=== PATIENT | female | born 1955 | race Hispanic/Latino ===

== ENCOUNTER 2018-12-28 08:55 | Inpatient (IN) | payer OTHER ==
[~2018-12-28] VITALS: Ht 157.5 cm; Wt 75.6 kg
[2018-12-28] MEDS: METHYLPREDNISOLONE SOD SUCC 125MG/2ML VIAL IV SCH ×2 (08:30→19:00)
[2018-12-28] MEDS ORDERED: IPRATROPIUM/ALBUTEROL SULFATE 3 ML SOLUTION IH ONE ×2 (09:38→10:46)
[2018-12-28 09:41] LABS: EOSINOPHILS % (AUTO) 38.1 % (0.0-8.0); LYMPHOCYTES % (AUTO) 7.6 % (21.0-51.0); MEAN CORPUSCULAR HEMOGLOBIN 30.4 pg (27.0-33.0); MEAN CORPUSCULAR HGB CONC 33.9 g/dL (32.0-36.0); MEAN CORPUSCULAR VOLUME 89.7 fL (79-99); MONOCYTES % (AUTO) 4.1 % (3.0-13.0); NEUTROPHILS % (AUTO) 49.2 % (40.0-77.0); PLATELET COUNT (AUTO) 229 K/uL (130-400); RED BLOOD CELL COUNT(AUTO) 4.35 MIL/uL (4.00-5.50); RED CELL DISTRIBUTION WIDTH 14.2 % (11.0-15.5); WHITE BLOOD COUNT (AUTO) 12.8 K/uL (4.8-10.8)
[2018-12-28 09:54] LABS: ABG BASE EXCESS 2.5 mmol/L (-2.0-3.0); ABG HCO3 27.1 mmol/L (21.0-28.0); ABG OXYGEN SATURATION 91.7 % (95.0-99.0); ABG PCO2 42 mmHg (32-45)
[2018-12-28 09:57] LABS: INR 1.03 (0.85-1.15); PARTIAL THROMBOPLASTIN TIME 26.5 SEC (26.3-35.5); PROTHROMBIN TIME 10.8 SEC (9.6-11.6)
[2018-12-28 10:17] LABS: ALBUMIN 3.4 g/dL (3.5-5.0); BILIRUBIN,TOTAL 0.3 mg/dL (0.2-1.0); CREATININE 0.7 mg/dL (0.5-1.5); POTASSIUM 3.7 mmol/L (3.5-5.1)
[2018-12-28] MEDS ORDERED: METHYLPREDNISOLONE SOD SUCC 125MG/2ML VIAL ONE (10:32)
[2018-12-28] MEDS ORDERED: INSULIN HUMULIN R 100 UNIT/ML 3ML ONE ×2 (10:32→19:53)
[2018-12-28] MEDS ORDERED: CEFTRIAXONE SODIUM 1 GM IV SCH (11:00)
[2018-12-28] MEDS ORDERED: DIPHENHYDRAMINE HCL 25 MG CAPSULE PO PRN (11:00)
[2018-12-28] MEDS ORDERED: ACETAMINOPHEN-CODEINE 300/30MG TAB PO PRN (11:00)
[2018-12-28] MEDS ORDERED: HYDRALAZINE HCL 20 MG/ML VIAL IV PRN (11:00)
[2018-12-28] MEDS ORDERED: ONDANSETRON HCL 4 MG/2 ML VIAL IV PRN (11:00)
[2018-12-28] MEDS ORDERED: AZITHROMYCIN 500MG+NS 250ML 250 ML IV SCH (11:00)
[2018-12-28] MEDS ORDERED: MORPHINE SULFATE 2 MG/ML 1ML SYG IV PRN (11:00)
[2018-12-28] MEDS ORDERED: ZOLPIDEM TARTRATE 5 MG TAB PO PRN (11:00)
[2018-12-28] MEDS ORDERED: LEVOFLOXACIN 750 MG/D5W 150 ML 150 ML ONE (11:13)
[2018-12-28] MEDS: INSULIN HUMULIN R 100 UNIT/ML 3ML SQ SCH ×2 (11:30→21:00)
[2018-12-28] MEDS ORDERED: IOHEXOL 350 MG/ML 100ML INFUS..BTL IV ONE (11:39)
[2018-12-28] MEDS: IPRATROPIUM/ALBUTEROL SULFATE 3 ML SOLUTION IH SCH ×3 (12:00→23:03)
[2018-12-28 12:35] LABS: APPEARANCE,URINE Clear (CLEAR); BILIRUBIN,URINE Negative (NEGATIVE); COLOR,URINE Yellow (YELLOW); GLUCOSE, URINE (UA) Negative (NEGATIVE); KETONES,URINE Negative (NEGATIVE); LEUKOCYTE ESTERASE ,URINE Negative (NEGATIVE); NITRATE,URINE Negative (NEGATIVE); OCCULT BLOOD,URINE Small (NEGATIVE); PROTEIN,URINE Negative (NEGATIVE); UROBILINOGEN,URINE 0.2 mg/dL (0.2-1.0)
[2018-12-28 12:51] LABS: BACTERIA,URINE Rare /HPF (None Seen); RBC,URINE 0-1 /HPF (0-1); SQUAMOUS EPITHELIAL CELL,UR Rare /HPF (0-2); WBC,URINE 0-1 /HPF (0-1)
[2018-12-28] MEDS ORDERED: VANCOMYCIN PROTOCOL PER PHARMACY IV SCH (14:00)
[2018-12-28] MEDS ORDERED: VANCOMYCIN 0.75 GM in SODIUM CHLORIDE 0.9% 250 ML IV ONE (14:00)
[2018-12-28] MEDS ORDERED: ZOSYN 3.375GM+NS 50ML 50 ML IV SCH (14:00)
[2018-12-28] MEDS ORDERED: MINO50CA6 PO (14:34)
[2018-12-28] MEDS ORDERED: METF-444 PO (14:34)
[2018-12-28] MEDS ORDERED: NABU500T3 PO (14:34)
[2018-12-28] MEDS ORDERED: LISI2.5T2 PO (14:34)
[2018-12-28] MEDS ORDERED: stiolto PUFF (14:34)
[2018-12-28] MEDS ORDERED: LEVO100T12 PO (14:34)
[2018-12-28] MEDS ORDERED: TRAM50TA4 PO (14:34)
[2018-12-28] MEDS ORDERED: FOLI1TAB15 PO (14:34)
[2018-12-28] MEDS: BUDESONIDE 0.5 MG/2 ML INH IH SCH (18:39)
[2018-12-28] MEDS ORDERED: ZOSYN 3.375GM+NS 50ML 50 ML IV ONE (18:58)
[2018-12-28] MEDS ORDERED: METHYLPREDNISOLONE SOD SUCC 40MG/ML 1ML ONE (18:58)
[2018-12-28 19:28] VITALS: BP 140/63
[2018-12-28] MEDS ORDERED: SODIUM CHLORIDE 0.9% 500ML 500 ML IV ONE (22:20)
[2018-12-28] MEDS: VANCOMYCIN 1GM+NS 250ML 250 ML IV SCH (22:32)
[2018-12-28] MEDS: INSULIN GLARGINE 100 UNITS/ML 10 ML VIAL SQ SCH (22:38)
[2018-12-28] MEDS ORDERED: PNEUMOCOCCAL VACCINE POLYVALENT 0.5 ML/VIAL [PPV] IM ONE (23:30)
[2018-12-29 00:26] VITALS: BP 123/69
[2018-12-29] MEDS ORDERED: SODIUM CHLORIDE 3% FOR INHALATION 4 ML/AMP VIAL.NEB IH ONE (02:08)
[2018-12-29] MEDS: METHYLPREDNISOLONE SOD SUCC 125MG/2ML VIAL IV SCH ×3 (03:00→18:41)
[2018-12-29] MEDS ORDERED: METHYLPREDNISOLONE SOD SUCC 40MG/ML 1ML ONE (03:19)
[2018-12-29] MEDS: ZOSYN 3.375GM+NS 50ML 50 ML IV SCH ×3 (03:26→18:41)
[2018-12-29 04:30] VITALS: BP 126/65
[2018-12-29 06:15] LABS: BASOPHILS % (AUTO) 0.5 % (0.0-5.0); EOSINOPHILS % (AUTO) 0.2 % (0.0-8.0); HEMATOCRIT 36.6 % (36-48); LYMPHOCYTES % (AUTO) 5.3 % (21.0-51.0); MEAN CORPUSCULAR HEMOGLOBIN 29.8 pg (27.0-33.0); MEAN CORPUSCULAR VOLUME 90.1 fL (79-99); NUCLEATED RED BLOOD CELLS 0.1 % (0.0-0.19); PLATELET COUNT (AUTO) 243 K/uL (130-400); RED BLOOD CELL COUNT(AUTO) 4.06 MIL/uL (4.00-5.50); RED CELL DISTRIBUTION WIDTH 14.1 % (11.0-15.5); WHITE BLOOD COUNT (AUTO) 10.2 K/uL (4.8-10.8)
[2018-12-29] MEDS: IPRATROPIUM/ALBUTEROL SULFATE 3 ML SOLUTION IH SCH ×4 (06:45→23:12)
[2018-12-29] MEDS: BUDESONIDE 0.5 MG/2 ML INH IH SCH ×2 (06:45→18:22)
[2018-12-29 06:49] LABS: CREATININE 0.7 mg/dL (0.5-1.5); MAGNESIUM 1.4 mg/dL (1.80-2.40); PHOSPHORUS 3.4 mg/dL (2.5-4.9); POTASSIUM 3.8 mmol/L (3.5-5.1); THYROID STIMULATING HORMONE 1.63 uIU/mL (0.36-3.74)
[2018-12-29 06:54] LABS: B-TYPE NATRIURETIC PEPTIDE 65 pg/mL (0-100)
[2018-12-29 07:30] VITALS: BP 120/65
[2018-12-29 07:57] LABS: ABG BASE EXCESS -0.1 mmol/L (-2.0-3.0); ABG HCO3 24.6 mmol/L (21.0-28.0); ABG PCO2 40 mmHg (32-45)
[2018-12-29] MEDS: INSULIN HUMULIN R 100 UNIT/ML 3ML SQ SCH ×4 (08:22→21:20)
[2018-12-29] MEDS: VANCOMYCIN 1GM+NS 250ML 250 ML IV SCH ×2 (10:01→21:17)
[2018-12-29] MEDS: ENOXAPARIN SODIUM 40 MG/0.4 ML SYRINGE SQ SCH (10:02)
[2018-12-29] MEDS: LEVOFLOXACIN 750 MG/D5W 150 ML 150 ML IV SCH (10:02)
[2018-12-29 11:00] VITALS: BP 128/64
[2018-12-29] MEDS ORDERED: POTASSIUM CHLORIDE 20MEQ/100ML 100 ML IV PRN (11:15)
[2018-12-29] MEDS ORDERED: POTASSIUM CHLORIDE 10% ELIXIR 20 MEQ/15 ML UDCUP PO PRN (11:15)
[2018-12-29] MEDS ORDERED: LIDOCAINE HCL-MPF 1% 2ML VIAL IVP PRN (11:15)
[2018-12-29] MEDS: MAGNESIUM 2GM PREMIX 50ML 50 ML IV PRN (14:01)
[2018-12-29 15:30] VITALS: BP 130/72
[2018-12-29 19:25] VITALS: BP 123/58
[2018-12-29] MEDS: OSELTAMIVIR PHOSPHATE 75 MG CAP PO SCH (21:17)
[2018-12-29] MEDS: INSULIN GLARGINE 100 UNITS/ML 10 ML VIAL SQ SCH (21:19)
[2018-12-30 00:01] VITALS: BP 112/53
[2018-12-30] MEDS ORDERED: METHYLPREDNISOLONE SOD SUCC 40MG/ML 1ML ONE ×2 (02:11→12:33)
[2018-12-30] MEDS: METHYLPREDNISOLONE SOD SUCC 125MG/2ML VIAL IV SCH ×3 (03:00→18:37)
[2018-12-30] MEDS: ZOSYN 3.375GM+NS 50ML 50 ML IV SCH ×3 (03:01→18:37)
[2018-12-30 04:25] VITALS: BP 149/66
--- NOTE | 2018-12-30 05:48 | NUR ---
PATIENT UPDATE SLEPT BETTER LAST NIGHT, STILL HAVING BOUTS OF COUGHING, CONTINUES ON THE DUONEBS TXS PER SCHEDULE, PULMICORT Q 12. STARTED ON THE TAMIFLU LAST NIGHT. VERBALIZED WANTING FOR STAFF TO ACCESS HER RT CHEST PORTACATH IN ADM OF HER MEDS, STILL PENDING RECONCILIATION OF HOME MEDS.
[2018-12-30] MEDS: BUDESONIDE 0.5 MG/2 ML INH IH SCH ×2 (06:20→18:13)
[2018-12-30] MEDS: IPRATROPIUM/ALBUTEROL SULFATE 3 ML SOLUTION IH SCH ×4 (06:20→23:06)
[2018-12-30] MEDS: INSULIN HUMULIN R 100 UNIT/ML 3ML SQ SCH ×4 (06:27→21:23)
[2018-12-30 06:33] LABS: BASOPHILS % (AUTO) 0.2 % (0.0-5.0); HEMATOCRIT 34.4 % (36-48); LYMPHOCYTES % (AUTO) 4.1 % (21.0-51.0); MEAN CORPUSCULAR HEMOGLOBIN 30.2 pg (27.0-33.0); MEAN CORPUSCULAR HGB CONC 33.5 g/dL (32.0-36.0); MEAN CORPUSCULAR VOLUME 90.1 fL (79-99); NEUTROPHILS % (AUTO) 92.7 % (40.0-77.0); PLATELET COUNT (AUTO) 209 K/uL (130-400); RED BLOOD CELL COUNT(AUTO) 3.82 MIL/uL (4.00-5.50); RED CELL DISTRIBUTION WIDTH 14.3 % (11.0-15.5); WHITE BLOOD COUNT (AUTO) 13.7 K/uL (4.8-10.8)
[2018-12-30 06:43] LABS: INR 0.98 (0.85-1.15); PARTIAL THROMBOPLASTIN TIME 26.1 SEC (26.3-35.5); PROTHROMBIN TIME 10.3 SEC (9.6-11.6)
[2018-12-30 06:47] LABS: B-TYPE NATRIURETIC PEPTIDE 178 pg/mL (0-100)
[2018-12-30 06:58] LABS: ALBUMIN 3.4 g/dL (3.5-5.0); BILIRUBIN,TOTAL 0.2 mg/dL (0.2-1.0); CREATININE 0.7 mg/dL (0.5-1.5); PHOSPHORUS 3.7 mg/dL (2.5-4.9); POTASSIUM 3.5 mmol/L (3.5-5.1); TOTAL PROTEIN, SERUM 7.8 g/dL (6.0-8.3)
[2018-12-30 08:00] VITALS: BP 122/58
[2018-12-30] MEDS: OSELTAMIVIR PHOSPHATE 75 MG CAP PO SCH ×2 (09:00→21:06)
[2018-12-30] MEDS: LEVOFLOXACIN 750 MG/D5W 150 ML 150 ML IV SCH (09:00)
[2018-12-30] MEDS: ENOXAPARIN SODIUM 40 MG/0.4 ML SYRINGE SQ SCH (09:01)
[2018-12-30] MEDS ORDERED: COMPOUND IV REFRIGERATED 1 EACH IVSOLN MISC PRN (10:00)
[2018-12-30 12:00] VITALS: BP 128/59
[2018-12-30] MEDS: VANCOMYCIN 1.25 GM in SODIUM CHLORIDE 0.9% 250 ML IV SCH ×2 (12:17→21:09)
[2018-12-30] MEDS: GUAIFENESIN-CODEINE 5 ML SYRUP PO PRN ×2 (14:32→21:07)
[2018-12-30 16:00] VITALS: BP 121/66
--- NOTE | 2018-12-30 16:50 | NUR ---
ROUNDS VISITED WITH PATIENT. POC DISCUSSED. ALL QUESTIONS ANSWERED. NO COMPLAINTS OF PAIN VOICED AT THIS TIME. VITALS STABLE. AFEBRILE. UP WITH ASSIST. DAUGHTERS AT BEDSIDE TO ASSIST WITH ADLS. NO SIGNS OF DISTRESS NOTED. O2 ON AT 3LPM VIA NASAL CANNULA. TOLERATING DUONEBS WELL. HOB ELEVATED. CALL LIGHT WITHIN REACH. WILL CONTINUE TO BE OBSERVED. Addendum: 12/30/18 at 1652 by MARITA CARODZA RN RN Amended: Links added.
[2018-12-30 20:00] VITALS: BP 126/62
[2018-12-30] MEDS: **HM**(Nabumetone 500 MG PO SCH (21:00)
[2018-12-30] MEDS: INSULIN GLARGINE 100 UNITS/ML 10 ML VIAL SQ SCH (21:24)
[2018-12-31] VITALS: BP 117/58
[2018-12-31] MEDS ORDERED: METHYLPREDNISOLONE SOD SUCC 40MG/ML 1ML ONE (02:04)
[2018-12-31] MEDS: METHYLPREDNISOLONE SOD SUCC 125MG/2ML VIAL IV SCH ×2 (03:00→10:41)
[2018-12-31] MEDS: ZOSYN 3.375GM+NS 50ML 50 ML IV SCH ×2 (03:08→10:59)
[2018-12-31 04:00] VITALS: BP 117/62
[2018-12-31 06:22] LABS: MEAN CORPUSCULAR HEMOGLOBIN 29.5 pg (27.0-33.0); MEAN CORPUSCULAR HGB CONC 32.6 g/dL (32.0-36.0); MEAN CORPUSCULAR VOLUME 90.6 fL (79-99); PLATELET COUNT (AUTO) 226 K/uL (130-400); RED BLOOD CELL COUNT(AUTO) 3.86 MIL/uL (4.00-5.50); RED CELL DISTRIBUTION WIDTH 14.3 % (11.0-15.5); WHITE BLOOD COUNT (AUTO) 10.8 K/uL (4.8-10.8)
[2018-12-31] MEDS ORDERED: LEVOTHYROXINE 100 MCG TABLET PO SCH (06:30)
[2018-12-31] MEDS: INSULIN HUMULIN R 100 UNIT/ML 3ML SQ SCH ×3 (06:46→17:24)
[2018-12-31 06:48] LABS: CREATININE 0.7 mg/dL (0.5-1.5); MAGNESIUM 1.7 mg/dL (1.80-2.40); PHOSPHORUS 4.1 mg/dL (2.5-4.9); POTASSIUM 3.5 mmol/L (3.5-5.1); THYROID STIMULATING HORMONE 4.07 uIU/mL (0.36-3.74)
[2018-12-31] MEDS: IPRATROPIUM/ALBUTEROL SULFATE 3 ML SOLUTION IH SCH ×2 (06:57→11:14)
[2018-12-31] MEDS: BUDESONIDE 0.5 MG/2 ML INH IH SCH (07:11)
[2018-12-31 08:00] VITALS: BP 113/59
[2018-12-31] MEDS ORDERED: METFORMIN HCL 500 MG TAB.SR.24H PO SCH (08:00)
--- NOTE | 2018-12-31 08:06 | NUR ---
cm note met with patient and states resides at home with spouse and adult daughters. , independent with adls and self care ambulation, no HH, no dme. only has a nebulizer machine. dc plan isback to same home setting [place]. Addendum: 12/31/18 at 0808 by OLEKSANDR CEDILLO CM Amended: Links added.
[2018-12-31] MEDS: LEVOFLOXACIN 750 MG/D5W 150 ML 150 ML IV SCH (08:37)
[2018-12-31] MEDS: OSELTAMIVIR PHOSPHATE 75 MG CAP PO SCH (08:37)
[2018-12-31] MEDS: ENOXAPARIN SODIUM 40 MG/0.4 ML SYRINGE SQ SCH (08:43)
[2018-12-31] MEDS: **HM**(Nabumetone 500 MG PO SCH (08:44)
[2018-12-31] MEDS ORDERED: DOCU100T PO (08:49)
[2018-12-31] MEDS: GUAIFENESIN-CODEINE 5 ML SYRUP PO PRN (08:53)
[2018-12-31] MEDS: POTASSIUM CHLORIDE 20 MEQ ERTAB PO PRN ×2 (08:54→13:41)
[2018-12-31] MEDS ORDERED: LISINOPRIL 2.5 MG TABLET PO SCH (09:00)
[2018-12-31] MEDS ORDERED: MINOCYCLINE HCL 50 MG CAP PO SCH (09:00)
[2018-12-31] MEDS ORDERED: FOLIC ACID 1 MG TABLET PO SCH (09:00)
[2018-12-31] MEDS ORDERED: STIOLTO 2.5 MCG IH SCH (09:00)
[2018-12-31] MEDS: VANCOMYCIN 1.25 GM in SODIUM CHLORIDE 0.9% 250 ML IV SCH (10:41)
[2018-12-31 12:00] VITALS: BP 122/60
[2018-12-31] MEDS: MAGNESIUM 2GM PREMIX 50ML 50 ML IV PRN (13:41)
[2018-12-31 16:00] VITALS: BP 133/75
[2018-12-31] MEDS ORDERED: HEPARIN SODIUM/PF 100UNIT/ML 5ML SYRINGE IV SCH (16:15)
--- NOTE | 2018-12-31 19:00 | NUR ---
DISCHARGE INSTRUCTIONS GIVEN. PATIENT TO FOLLOW UP WITH PCP AND DR YEPEZ . PRESCRIPTIONS GIVEN. ALL QUESTIONS ANSWERED.
== END 2018-12-31 19:00 | disposition home or self-care (01) | DRG 193 ==
LOC: EDH 08:55 → OBSVTOIN 10:50 → EDHIP 10:50 → 3DH 21:21
PROVIDERS: ADMIT Internal Medicine; ATTEND Internal Medicine
DX: J10.00 Influenza due to other identified influenza virus with unspecified type of pneumonia (principal); J96.01 Acute respiratory failure with hypoxia; J44.0 Chronic obstructive pulmonary disease with (acute) lower respiratory infection; J44.1 Chronic obstructive pulmonary disease with (acute) exacerbation; C54.1 Malignant neoplasm of endometrium; E03.9 Hypothyroidism, unspecified; E11.9 Type 2 diabetes mellitus without complications; E78.5 Hyperlipidemia, unspecified; I10 Essential (primary) hypertension; M06.9 Rheumatoid arthritis, unspecified; Y95 Nosocomial condition; Z53.29 Procedure and treatment not carried out because of patient's decision for other reasons; Z79.51 Long term (current) use of inhaled steroids; Z85.42 Personal history of malignant neoplasm of other parts of uterus; Z90.710 Acquired absence of both cervix and uterus; Z98.51 Tubal ligation status; Z92.21 Personal history of antineoplastic chemotherapy; Z92.3 Personal history of irradiation
CPT/HCPCS: 36415; 36600; 71045; 71275; 80048; 80053; 80202; 81001; 82803; 82948; 83036; 83605; 83735; 83880; 84100; 84443; 84484; 85025; 85027; 85610; 85730; 87040; 87071; 87205; 87804; 93005; 93306; 93970; 94640; 94664; 94760; 97039; 99291; G0378; J1642; J1650; J1815; J1956; J2543; J2920; J2930; J3370; J3475; J7030; J7040; Q9967